=== PATIENT | female | born 1960 | race Caucasian/White ===

== ENCOUNTER 2019-03-23 08:26 | Day surgery (SDC) | payer OTHER ==
--- NOTE | 2019-03-23 08:05 | HP ---
DATE OF SURGERY: 03/23/2019 HISTORY OF PRESENT ILLNESS: The patient is a 58 year-old with history of polyps. No bloody stools. Last colonoscopy was in 2011. Family history negative for colon cancer or stomach cancer. Some epigastric pain, some bloating. She feels full usually. Given her epigastric pain, bloating and history of polyps she is in need of EGD and colonoscopy. PAST MEDICAL HISTORY: Diabetes. PAST SURGICAL HISTORY: Cyst under her breast taken off in the past. section. Eye surgery. Cholecystectomy. Appendectomy. Elbow surgery. Foot surgery. MEDICATIONS: Amaryl, Lipitor, Zantac. ALLERGIES: ASPIRIN, CIPRO, PREVACID. FAMILY HISTORY: Negative in regards to this problem. SOCIAL HISTORY: One pack per day smoker, denies alcohol abuse. REVIEW OF SYSTEMS: Twelve systems reviewed, negative or noncontributory as above and per preadmission questionnaire. PHYSICAL EXAMINATION: GENERAL: No acute distress. HEENT: Sclerae nonicteric. NECK: No JVD. CHEST: Equal excursion, nonlabored breathing. CVS: Regular rate and rhythm. ABDOMEN: Soft. No peritoneal signs. EXTREMITIES: No significant edema. NEURO: Alert, oriented, moving extremities symmetrically. No gross motor deficits noted. RECTAL: Deferred timed to endoscopy exam. IMPRESSION: History of some epigastric pain, bloating, history of polyps, in need of EGD and colonoscopy. She is shown the risk sheet and explained the procedure in detail but not limited to bleeding or infection, risk of bowel injury or perforation possibly requiring open procedure, risk of missed or nondiagnosis or incomplete exam possibly requiring barium enema, other studies or procedures, general risk of anesthesia or sedation, risk of bowel prep or sedation, postoperative risk of nausea or cramping as well as possibility of inability to diagnose the etiology of her symptoms. She may need further work up and/or testing or even referral to other specialist. She understands and agrees to the planned procedure and will proceed with EGD and colonoscopy as an outpatient.
[~2019-03-23 08:26] MED LIST: Lactated Ringers 1,000 ML IV ONE; Lactated Ringers 1,000 ML IV SCH
[2019-03-23] MEDS ORDERED: Ketamine HCl 50 MG/ML IV ONE (08:27)
[2019-03-23] MEDS ORDERED: DIPRIVAN 200 MG/20 ML IV ONE (08:27)
[2019-03-23 11:47] VITALS: O2SAT 98
[2019-03-23 11:51] VITALS: BP 144/94; PULSE 75
--- NOTE | 2019-03-24 08:10 | OP ---
SURGERY DATE/TIME: 03/23/2019 1008 PREOPERATIVE DIAGNOSES: 1) Epigastric pain, bloating. 2) Need for screening colonoscopy. POSTOPERATIVE DIAGNOSES: 1) Mild gastritis. 2) Small internal and external hemorrhoids. 3) Small raised lesion versus hyperplastic lesion in the rectum. PROCEDURES: 1) EGD with cold biopsy of small bowel to evaluate for celiac sprue. 2) Cold biopsy of the antrum to evaluate for Helicobacter pylori. 3) Cold biopsy distal esophagus to evaluate for eosinophilic esophagitis. 4) Colonoscopy to terminal ileum. 5) Retrograde ileoscopy. 6) Random cold biopsy of the ileum to evaluate for microscopic ileitis. 7) Random cold biopsy of the colon to evaluate for microscopic colitis. 8) Hot biopsy small raised lesion versus hyperplastic lesion rectum x2. SURGEON: Dr. Sean Rodríguez. ANESTHESIA: MAC. ESTIMATED BLOOD LOSS: Minimal. INDICATIONS: As noted above. Risks and benefits explained in detail and not limited to and consent obtained. DESCRIPTION OF PROCEDURE AND FINDINGS: The patient is taken to the operating room. MAC anesthesia introduced. After official time out and no disagreement with planned procedure, a bite block positioned. Video gastroscope easily passed down the esophagus through the gastroesophageal junction about 38 cm through the patent pylorus to the junction of the second and third portion of the duodenum. Duodenum and duodenal bulb grossly unremarkable. Given her symptoms of pain and bloating unclear etiology. There are no large ulcers noted in the stomach. It was felt that she warranted testing for celiac sprue. Cold biopsy taken. Biopsy of the small bowel to evaluate for celiac sprue. Good hemostasis noted. The scope pulled back into the stomach and had some mild gastritis, petechial hemorrhages. Cold biopsy taken to evaluate for Helicobacter pylori. Good hemostasis noted. There were no signs of any large ulcers, masses, any obstructing lesions or any other mucosal lesion. No polyps, masses, ulcers or any other mucosal lesion. On retroflex the gastroesophageal junction snug against the scope. No signs of any significant hiatal hernia. Scope straightened. Gastroesophageal junction noted about 38 cm. Z-line was fairly crisp. No signs of any Mcelroy's or erosive esophagitis. Given her symptom complaints however some random cold biopsies taken of distal esophagus to evaluate for eosinophilic esophagitis. Good hemostasis noted. Otherwise the remainder of the esophagus was grossly unremarkable. No signs of any obvious masses or any other mucosal lesions. The scope is withdrawn. The patient tolerated the procedure well. Attention is then turned to the colonoscopy. Digital rectal exam did not reveal any rectal masses. She did have some small internal and external hemorrhoids. Video colonoscope inserted and passed up the tortuous sigmoid, descending, transverse and ascending colon. With external pressure the scope was able to be passed around the cecum. Appendiceal orifice and valve well visualized. Scope passed up the terminal ileum. Retrograde ileoscopy was performed which was grossly unremarkable. There were no signs of any chronic inflammation. No signs of any cobblestoning. It looked fairly unremarkable. But given her symptom complaints cold biopsy taken in the ileum to evaluate for microscopic ileitis. The scope was then pulled back. Random cold biopsies were taken throughout the colon. There were no macroscopic colitis. Random cold biopsies taken to evaluate for microscopic colitis given her symptom complaints of pain and bloating. The scope slowly and carefully withdrawn over around to the rectum. Prep overall was fair, a little bit of liquidy semi-solid stool suction irrigated as clear as possible slightly limiting the exam for very tiny lesions but overall fair prep. Scope pulled back in the rectum. A couple small 2 mm raised lesions versus early polyps or hyperplastic lesions. These were removed with hot biopsy forceps with brief bursts of cautery. Good hemostasis was noted. Otherwise she had some small internal and external hemorrhoids. The scope is carefully withdrawn. There is no sign of any large polyps, masses or obstructing lesions. Findings discussed with the family out in the waiting area. We will see her back in the office in a week or two.
== END 2019-03-23 11:45 | disposition home or self-care (01) ==
LOC: SDC 08:26
PROVIDERS: ATTEND Surgery
DX: Z12.11 Encounter for screening for malignant neoplasm of colon (principal); R10.13 Epigastric pain; K62.1 Rectal polyp; K29.70 Gastritis, unspecified, without bleeding; K64.4 Residual hemorrhoidal skin tags; K64.8 Other hemorrhoids
CPT/HCPCS: 88305; 88312; J2704

== ENCOUNTER 2019-06-15 10:38 | Day surgery (SDC) | payer OTHER ==
--- NOTE | 2019-06-15 08:24 | HP ---
DATE OF SURGERY: 06/15/2019 HISTORY OF PRESENT ILLNESS: The patient is a 59 year-old the past four months increasing size lesion on her nose. She had some other pigmented lesions that she did not want excised at the same time. PAST MEDICAL HISTORY: Diabetes. Kidney stones in the past. Hypercholesterolemia. PAST SURGICAL HISTORY: Lithotripsy x7 in the past. Eye surgery x3. section x2. Appendectomy. Cholecystectomy in the past. MEDICATIONS: Dicyclomine, garlic, Amaryl, Lipitor, Metformin. ALLERGIES: ASPIRIN, CIPRO, PREVACID. FAMILY HISTORY: Diabetes. SOCIAL HISTORY: One box packer per day smoker. Denies alcohol abuse. REVIEW OF SYSTEMS: Fourteen systems reviewed. No chest pain or palpitations other systems negative or noncontributory as above and per preadmission questionnaire. PHYSICAL EXAMINATION: GENERAL: No acute distress. HEENT: Sclerae nonicteric. NECK: No JVD. CHEST: Equal excursion, nonlabored breathing. CVS: Regular rate and rhythm. ABDOMEN: Soft. EXTREMITIES: No significant edema. NEURO: Alert, oriented, moving extremities symmetrically. No gross motor deficits noted. HEENT: On the face she has a nonhealing lesion on her nose enlarging in size thickening. IMPRESSION: Nonhealing, enlarging lesion changes in pigmented lesion on her nose in need of excision, possible flap or possible skin graft. Risks and benefits explained in detail including but not limited to bleeding or infection, risk of wound dehiscence possible healing by secondary intent or other procedures, risk of involved margins, possibly requiring other procedures, general risk of anesthesia, deep venous thrombosis, pulmonary embolism or pneumonia. The fact that she would have a scar in the area. She could have a little contour change of her nose. She understands and agrees to the planned procedure. We will proceed with excisional biopsy of pigmented nonhealing nose lesion possible flap, possible skin graft pending on operative findings. She understands and agrees to the planned procedure.
[~2019-06-15 10:38] MED LIST changes: +DIPRIVAN 200 MG/20 ML IV ONE; +Ketamine HCl 50 MG/ML ONE; -Lactated Ringers 1,000 ML IV SCH; +Quelicin Fliptop 200 MG/10 ML ONE; +SUBLIMAZE 100 MCG/2 ML ONE; +Sensorcaine 0.25% 10 ML ONE; +Zemuron 100 MG/10 ML ONE
[2019-06-15] MEDS ORDERED: Lactated Ringers 1,000 ML IV ONE (10:50)
[2019-06-15] MEDS ORDERED: CEFAZOLIN 2 GM-D5W BAG** 2 GM/50 ML ML IV ONE (10:51)
[2019-06-15] MEDS ORDERED: CEFAZOLIN 2 GM-D5W BAG** 2 GM/50 ML ML IV SCH (11:00)
[2019-06-15] MEDS ORDERED: Lactated Ringers 1,000 ML IV SCH (11:00)
[2019-06-15] MEDS ORDERED: MINERAL OIL LIGHT 10 ML FOR SURGERY ONE (13:21)
[2019-06-15] MEDS ORDERED: TORAdol 30 mg Injection ONE (13:46)
[2019-06-15] MEDS ORDERED: Zofran 4 MG/2 ML VIAL ONE (13:46)
[2019-06-15] MEDS ORDERED: Decadron 4 MG INJ ONE (13:46)
[2019-06-15 15:28] VITALS: BP 160/88; PULSE 63; O2SAT 97
--- NOTE | 2019-06-15 15:41 | OP ---
SURGERY DATE/TIME: 06/15/2019 1306 PREOPERATIVE DIAGNOSIS: Nonhealing, recurrent bleeding nasal lesion. POSTOPERATIVE DIAGNOSIS: Nonhealing, recurrent bleeding nasal lesion. PROCEDURE: Excisional biopsy of nonhealing nasal lesion with 1 cm split thickness skin graft coverage approximately 1 cm/sq. SURGEON: Dr. Sean Rodríguez. ANESTHESIA: General. ESTIMATED BLOOD LOSS: Minimal. INDICATIONS: As noted above. Risks and benefits explained in detail and not limited to and consent obtained. DESCRIPTION OF PROCEDURE AND FINDINGS: The patient is taken to the operating room. Site had been confirmed and marked with the patient in the preoperative holding area. General anesthesia introduced. Nose, neck and ear prepped and draped in usual sterile fashion. After official time out and no disagreement with planned procedure, going out to normal appearing skin on either side of this nonhealing lesion dissection carried down underneath down towards the cartilage. This required going just inside the nose a bit with about 1 cm specimen. Given the location short of altering the cartridge and shape of this nostril/nose as well as it is felt a flap would create some other issues more laterally, it is felt the best option at this juncture was a skin graft to cover this area. It is felt behind the ear, upper part of the neck resection carried in spindle-shaped fashion with the skin defatted as it was excised. The spindle-shaped fragment of skin was excised. It had been cut to appropriate dimensions. Slits were cut to allow for any fluid to drain. It was then secured circumferentially around with 6-0 PDS turning the graft as necessary. This covered the area. Some mineral oil, Adaptic and a bulky dressing with some rolled gauze as they do not have Kittner peanut type to use. A 2 x 2 was cut and rolled as a compression dressing secured with 4-0 Prolene. 0.25% Marcaine local was then injected at the base of the nose and along the graft donor site upper neck posterior to the ear. This donor site had been closed in running 5-0 Prolene. Sterile dressing applied. Patient tolerated the procedure well. There were no immediate complications. Findings discussed with the family out in the waiting area. Leave the compression dressing in place for the next week and change the outer dressing if needed and change the neck dressing as needed starting in a day or two. Otherwise will follow up and see her in the office next week.
== END 2019-06-15 15:39 | disposition home or self-care (01) ==
LOC: SDC 10:38
PROVIDERS: ATTEND Surgery
DX: C44.311 Basal cell carcinoma of skin of nose (principal); E11.9 Type 2 diabetes mellitus without complications; E78.00 Pure hypercholesterolemia, unspecified; Z79.899 Other long term (current) drug therapy
CPT/HCPCS: 82962; J0330; J0690; J1100; J1885; J2405; J2704; J3010; A9270-GY

== ENCOUNTER 2020-10-31 17:06 | Emergency (ER) | payer MEDICAID ==
[2020-10-31 17:28] VITALS: O2SAT 97
[2020-10-31] MEDS ORDERED: MORPHINE SULFATE 2 MG INJ IV ONE (17:39)
[2020-10-31] MEDS ORDERED: Sodium Chloride 0.9% 1000 ML 1,000 ML IV SCH (17:45)
[2020-10-31 18:03] LABS: Hematocrit 43.1 % (35-47); Hemoglobin 14.3 gm/dl (12.0-16.0); Mean Cell Volume 95.6 fl (78-100); Mean Corpuscular Hemoglobin 31.7 pg (26-32); Mean Corpuscular Hgb Concent. 33.2 g/dl (32-36); Mean Platelet Volume 9.3 fl (7.5-11.0); Platelet Count 268 K/mm3 (150-450); Red Blood Count 4.51 M/mm3 (4.1-5.4); Red Cell Distribution Width 13.5 % (11.5-14.0); White Blood Count 12.1 K/mm3 (4.0-10.5)
[2020-10-31 18:21] LABS: ALBUMIN 4.3 g/dL (3.5-5.0); ALKALINE PHOSPHATASE 87 U/L (38-126); ANION GAP 14.2 MEQ/L (5-15); BLOOD UREA NITROGEN 15 mg/dL (7-17); CHLORIDE 103 mmol/L (98-107); Calcium 10.1 mg/dL (8.4-10.2); Carbon Dioxide 25 mmol/L (22-30); Creatinine 1 0.72 mg/dL (0.52-1.04); EST GLOMERULAR FILTRATION RATE > 60.0 ML/MIN; Glucose 185 mg/dL (74-106); LIPASE 101 U/L (23-300); Potassium 4.2 mmol/L (3.5-5.1); SGOT/AST 54 U/L (14-36); SGPT/ALT 34 U/L (0-35); SODIUM 138 mmol/L (137-145); Total Protein 7.9 g/dL (6.3-8.2)
[2020-10-31 18:32] LABS: Appearance SLIGHTLY CLOUDY (CLEAR); Bilirubin NEGATIVE (NEGATIVE); Blood MODERATE Ery/ul (0-5); Glucose NEGATIVE (NEGATIVE); Ketones NEGATIVE (NEGATIVE); Leukocyte Esterase MODERATE (NEGATIVE); Mucus SLIGHT /HPF (NEGATIVE); Nitrite POSITIVE (NEGATIVE); Protein,Urine Dip 100 (Negative); RBC 26-50 /HPF (0-2); Urobilinogen 2 mg/dL (0-1); WBC >100 /HPF (0-5)
[2020-10-31] MEDS ORDERED: MORPHINE SULFATE 2 MG INJ ONE (18:41)
[2020-10-31] MEDS ORDERED: Sodium Chloride 0.9% 1000 ML 1,000 ML ONE (18:41)
[2020-10-31] MEDS ORDERED: ROCEPHIN 1 Gm-D5w 50 ml Bag** 1 G/50 ML IVPB IV STA (18:43)
[2020-10-31] MEDS ORDERED: ROCEPHIN 1 Gm-D5w 50 ml Bag** 1 G/50 ML IVPB IV ONE (18:46)
--- NOTE | 2020-10-31 19:50 | ERPHSYRPT ---
- History of Present Illness Time Seen by Provider: 10/31/20 17:30 Source: patient Exam Limitations: no limitations Patient Subjective Stated Complaint: pt here for pain to right flank area since 1600 today with nausea and vomiting, she has hx of kidney stones Triage Nursing Assessment: pt alert, walked in holding back, resp easy, skin w/d/p. has face mask in place, no edeman Physician History: Patient is a 60-year-old female presents to our ED with complaints of right flank pain. Right flank pain started approximately 4 PM today. Patient advises that she has a history of multiple recurrent kidney stones requiring lithotripsy. Patient's pain today is similar to her kidney stone pain. Pain described as an ache that is localized to the right flank. No specific worsening improving factors. Patient admits to associated nausea and vomiting. No fever. No trauma. No diaphoresis. Symptoms are mild to moderate in intensity. Patient voices no other complaints at concerns at this time. Timing/Duration: today Severity: moderate Modifying Factors: Improves With: nothing Associated Symptoms: nausea, vomiting Allergies/Adverse Reactions: ciprofloxacin [From Cipro] Allergy (Intermediate, Verified 10/31/20 17:28) Hives aspirin Adverse Reaction (Severe, Verified 10/31/20 17:28) hx of bleeding ulcers lansoprazole [From Prevacid] Adverse Reaction (Intermediate, Verified 10/31/20 17:28) ringing in ears and dizziness Home Medications: Atorvastatin Calcium [Lipitor 20MG Tablet] 80 mg PO DAILY 03/12/19 [History] Metformin HCl [Glucophage] 1,000 mg PO DAILY 06/10/19 [History] Clopidogrel Bisulfate [Clopidogrel] 1 ea DAILY 10/31/20 [History] Furosemide 20 mg [Lasix 20 mg] 1 ea DAILY 10/31/20 [History] Isosorbide Mononitrate 30 mg [Imdur 30 MG] 1 ea DAILY 10/31/20 [History] Loratadine 1 ea DAILY 10/31/20 [History] Metoprolol Succinate 1 ea DAILY 10/31/20 [History] Omeprazole 1 ea DAILY 10/31/20 [History] Potassium Chloride 10 Meq Tab* [Klor Con 10 MEQ] 1 ea BID 10/31/20 [History] lisinopriL [Zestril] 1 ea DAILY 10/31/20 [History] Hx Tetanus, Diphtheria Vaccination/Date Given: No Hx Influenza Vaccination/Date Given: Yes Hx Pneumococcal Vaccination/Date Given: Yes Immunizations Up to Date: Yes Travel Risk - International Travel Have you traveled outside of the country in past 3 weeks: No - Coronavirus Screening Are you exhibiting any of the following symptoms?: No Close contact with a COVID-19 positive Pt in past 14-21 Days: No - Review of Systems Constitutional: No Symptoms, No Fever, No Chills Eyes: No Symptoms Ears, Nose, & Throat: No Symptoms Respiratory: No Symptoms, No Cough, No Dyspnea Cardiac: No Symptoms, No Chest Pain, No Edema, No Syncope Abdominal/Gastrointestinal: No Symptoms, No Abdominal Pain, No Nausea, No Vomiting, No Diarrhea Genitourinary Symptoms: No Symptoms, No Dysuria Musculoskeletal: No Symptoms, No Back Pain, No Neck Pain Skin: No Symptoms, No Rash Neurological: No Symptoms, No Dizziness, No Focal Weakness, No Sensory Changes Psychological: No Symptoms Endocrine: No Symptoms Hematologic/Lymphatic: No Symptoms Immunological/Allergic: No Symptoms All Other Systems: Reviewed and Negative - Past Medical History Pertinent Past Medical History: Yes Neurological History: TIA ENT History: No Pertinent History Cardiac History: No Pertinent History Respiratory History: No Pertinent History, Other Endocrine Medical History: Diabetes Type II Musculoskeletal History: No Pertinent History GI Medical History: GERD History: No Pertinent History Psycho-Social History: No Pertinent History Female Reproductive Disorders: No Pertinent History Other Medical History: Current everyday smoker - Past Surgical History Past Surgical History: Yes Neuro Surgical History: No Pertinent History Cardiac: No Pertinent History Respiratory: No Pertinent History Gastrointestinal: Appendectomy, Cholecystectomy, Other Genitourinary: No Pertinent History Musculoskeletal: Other Female Surgical History: Section, Other Other Surgical History: 7 lithotripies, 1 with retrievals, L ovary, cyst on L breast removed. ulnar entrapment surgeries, warts removed from both feet. - Social History Smoking Status: Former smoker How long have you smoked: 30 years Exposure to second hand smoke: No Drug Use: none Patient Lives Alone: No - Female History Hx Last Menstrual Period: post Hx Now: No - Nursing Vital Signs Nursing Vital Signs: Initial Vital Signs Temperature 97.7 F 10/31/20 17:22 Pulse Rate 93 H 10/31/20 17:22 Respiratory Rate 18 12/07/20 17:22 Blood Pressure 159/84 12/07/20 17:22 O2 Sat by Pulse Oximetry 97 10/31/20 17:22 Pain Scale Pain Intensity 8 - Physical Exam General Appearance: no apparent distress, alert Eye Exam: PERRL/EOMI, eyes nml inspection Ears, Nose, Throat Exam: normal ENT inspection, TMs normal, pharynx normal, moist mucous membranes Neck Exam: normal inspection, non-tender, supple, full range of motion Respiratory Exam: normal breath sounds, lungs clear, No respiratory distress Cardiovascular Exam: regular rate/rhythm, normal heart sounds, normal peripheral pulses Gastrointestinal/Abdomen Exam: soft, normal bowel sounds, other (Rt CVA tenderness to palpation. Soft tissue intact. No signs of trauma.), No tenderness, No mass Back Exam: normal inspection, normal range of motion, No CVA tenderness, No vertebral tenderness Extremity Exam: normal inspection, normal range of motion, pelvis stable Neurologic Exam: alert, oriented x 3, cooperative, normal mood/affect, nml cerebellar function, nml station & gait, sensation nml, No motor deficits Skin Exam: normal color, warm, dry, No rash Lymphatic Exam: No adenopathy SpO2 Interpretation: normal SpO2: 97 O2 Delivery: Room Air - Course Nursing assessment & vital signs reviewed: Yes - CT Exams Abdomen/Pelvis CT Interpretation: Tele-radiologist Report (T reveals a 6 to 7 mm distal right ureter calculus approximately 4 to 5 cm from the UVJ. Proximal right ureter dilated up to 7 mm and mild hydronephrosis. This is consistent with obstructive uropathy. Nonobstructing left renal punctate calculus.) Ordered Tests: Active Orders 24 hr Category Date Time Status IV Insertion STAT Care 10/31/20 17:37 Active ABDOMEN AND PELVIS W/0 CONTRAS [CT] Stat Exams 10/31/20 17:38 Taken CBC W DIFF Stat Lab 10/31/20 17:40 Completed CMP Stat Lab 10/31/20 17:40 Completed CULTURE,URINE Stat Lab 10/31/20 17:37 Received LIPASE Stat Lab 10/31/20 17:40 Completed Manual Differential NC Stat Lab 10/31/20 17:40 Completed UA W/RFX UR CULTURE Stat Lab 10/31/20 17:37 Completed Medication Summary Generic Name Dose Route Start Last Admin Trade Name Freq PRN Reason Stop Dose Admin Sodium Chloride 1,000 mls @ 100 mls/hr 10/31/20 17:45 10/31/20 18:49 Sodium Chloride 0.9% 1000 Ml IV 11/30/20 17:44 100 mls/hr .Q10H CHRISTA Administration Discontinued Medications Generic Name Dose Route Start Last Admin Trade Name Abdirahman PRN Reason Stop Dose Admin Ceftriaxone Sodium/Dextrose 1 g in 50 mls @ 100 mls/hr 10/31/20 18:43 10/31/20 18:50 Rocephin 1 Gm-D5w 50 Ml Bag IV 10/31/20 19:12 100 mls/hr STAT STA 100 mls/hr Administration Ceftriaxone Sodium/Dextrose Confirm 10/31/20 18:46 Rocephin 1 Gm-D5w 50 Ml Bag Administered 10/31/20 18:47 Dose 1 g in 50 mls @ ud IV .STK-MED ONE Morphine Sulfate 2 mg 10/31/20 17:39 10/31/20 18:51 Morphine Sulfate 2 Mg Inj IV 10/31/20 17:40 2 mg STAT ONE Administration Morphine Sulfate Confirm 10/31/20 18:41 Morphine Sulfate 2 Mg Inj Administered 10/31/20 18:42 Dose 2 mg .ROUTE .STK-MED ONE Lab/Rad Data: Laboratory Result Diagrams 10/31/20 17:40 10/31/20 17:40 Laboratory Results 10/31/20 10/31/20 10/31/20 Range/Units 17:40 17:40 17:37 WBC 12.1 H (4.0-10.5) K/mm3 RBC 4.51 (4.1-5.4) M/mm3 Hgb 14.3 (12.0-16.0) gm/dl Hct 43.1 (35-47) % MCV 95.6 (78-100) fl MCH 31.7 (26-32) pg MCHC 33.2 (32-36) g/dl RDW 13.5 (11.5-14.0) % Plt Count 268 (150-450) K/mm3 MPV 9.3 (7.5-11.0) fl Sodium 138 (137-145) mmol/L Potassium 4.2 (3.5-5.1) mmol/L Chloride 103 (98-107) mmol/L Carbon Dioxide 25 (22-30) mmol/L Anion Gap 14.2 (5-15) MEQ/L BUN 15 (7-17) mg/dL Creatinine 0.72 (0.52-1.04) mg/dL Estimated GFR > 60.0 ML/MIN Glucose 185 H (74-106) mg/dL Calcium 10.1 (8.4-10.2) mg/dL Total Bilirubin 0.60 (0.2-1.3) mg/dL AST 54 H (14-36) U/L ALT 34 (0-35) U/L Alkaline Phosphatase 87 (38-126) U/L Serum Total Protein 7.9 (6.3-8.2) g/dL Albumin 4.3 (3.5-5.0) g/dL Lipase 101 (23-300) U/L Urine Color BEA (YELLOW) Urine Appearance SLIGHTLY CLOUDY (CLEAR) Urine pH 5.0 (5-6) Ur Specific [place] 1.020 (1.005-1.025) Urine Protein 100 (Negative) Urine Ketones NEGATIVE (NEGATIVE) Urine Blood MODERATE (0-5) Primitivo/ul Urine Nitrite POSITIVE (NEGATIVE) Urine Bilirubin NEGATIVE (NEGATIVE) Urine Urobilinogen 2 (0-1) mg/dL Ur Leukocyte Esterase MODERATE (NEGATIVE) Urine WBC (Auto) >100 (0-5) /HPF Urine RBC (Auto) 26-50 (0-2) /HPF U Epithel Cells (Auto) NONE (FEW) /HPF Urine Bacteria (Auto) NONE (NEGATIVE) /HPF Urine Mucus (Auto) SLIGHT (NEGATIVE) /HPF Urine Culture Reflexed YES (NO) Urine Glucose NEGATIVE (NEGATIVE) mg/dL - Progress Progress: improved Progress Note: 10/31/20 19:49 Patient reassessed. Pain improved. CT reveals a ureterolithiasis. Additionally patient has a urinary tract infection. Rocephin administered. Patient is not displaying any signs of sepsis at this time. We do not have urology available at this time. We will transfer patient to [facility] for further evaluation and treatment. Case discussed with ER physician Dr. Art who accepts transfer. Plan of care discussed with patient. She agrees t o transfer to [facility] for further evaluation and treatment. Counseled pt/family regarding: lab results, diagnosis, rad results - Departure Departure Disposition: Transfer Clinical Impression: Ureterolithiasis, Hydronephrosis, Urinary tract infection, Renal colic Condition: Stable Critical Care Time: No Referrals: BRUCE ALBARRAN [Primary Care Provider] -
[2020-10-31 19:56] VITALS: BP 154/77; PULSE 62
[2020-10-31 22:57] LABS: Eosinophil 3 % (0.00-3.0); Lymphocytes 21 % (24-44); Monocyte 11 % (0.0-12.0); Neutrophils 65 % (36.0-66.0); Total Cells Counted 100
[2020-10-31 22:58] LABS: Platelet Estimate NORMAL (NORMAL)
--- NOTE | 2020-11-01 08:47 | XRAY ---
Indication: Right flank pain. Nausea and vomiting. Multiple contiguous axial images obtained through the abdomen and pelvis without contrast using renal stone protocol. Comparison: None Lung bases demonstrates small right lower lobe calcified granuloma. No infiltrate or effusion. Heart is not enlarged with partially visualized pacer leads. Distal right ureter demonstrates 6-7 mm calculus approximately 4-5 cm proximal to the UVJ. Proximal right ureter is prominent up to 7 mm and there is mild hydronephrosis consistent with obstructive uropathy. No perinephric fluid/stranding. Left kidney demonstrates nonobstructing punctate calculus. Stomach is distended with food. Noncontrasted stomach and bowel loops appear nonobstructed. Previous appendectomy, cholecystectomy, and bilateral tubal ligation. No free fluid/air. Remaining liver, pancreas, spleen, adrenal glands, kidneys, ureters, bladder, and uterus appear unremarkable for noncontrast exam. Moderate scattered aortoiliac calcifications without AAA. Osseous structures intact with mild degenerative changes throughout the thoracolumbar spine. Impression: 1. 6-7 mm distal right ureteral calculus producing partial obstruction as detailed. Additional nonobstructing left renal micro-calculus. 2. Incidental right lower lobe calcified granuloma, scattered arteriosclerotic disease, and chronic bony findings. 3. Remaining CT abdomen/pelvis without contrast exam is negative.
== END 2020-10-31 20:10 | disposition short-term general hospital (02) ==
LOC: ED 17:06
DX: N13.2 Hydronephrosis with renal and ureteral calculous obstruction (principal); N39.0 Urinary tract infection, site not specified; N23 Unspecified renal colic
CPT/HCPCS: 36000; 36415; 74176; 80053; 81001; 83690; 85025; 87077; 87086; 87186; 96360; 96365; 96374; 99285; J0696; J2270

== ENCOUNTER 2022-11-29 16:39 | Emergency (ER) | payer MEDICAID, OTHER ==
[2022-11-29] MEDS ORDERED: Zofran 4 MG/2 ML VIAL IV ONE (17:14)
[2022-11-29] MEDS ORDERED: MORPHINE SULFATE 4 MG INJ IV ONE (17:14)
[2022-11-29] MEDS ORDERED: Sodium Chloride 0.9% 500 ML 500 ML IV ONE ×2 (17:15→18:53)
--- NOTE | 2022-11-29 17:21 | ERPHSYRPT ---
- History of Present Illness Time Seen by Provider: 11/29/22 17:05 Historian: patient Exam Limitations: no limitations Patient Subjective Stated Complaint: Pt has hx of diverticulitis and approx 30 minutes ago she began having pain in her LUQ w/nausea Triage Nursing Assessment: Pt brought to the ER by her , alyson crisostomo, rates pain as 8/10, pain with palpatation to the LUQ, nausea, denies vomiting, last intake approx 30 minutes ago, last bowel movement yesterday, doesn't appear to be in any distress Physician History: 62 years old female with multiple medical problems including CAD, A. fib on Coumadin, AICD implant, hypertension, hyperlipidemia, diverticulitis, diabetes mellitus presented in the ER with 2 hours history of moderate to severe sharp pain left upper quadrant with associated nausea and dry heaving. Denies diarrhea or constipation. No significant aggravating or relieving factors. Reports having similar symptoms in the past with diverticulitis. Timing/Duration: hour(s) (2), constant, sudden, worse Activities at Onset: rest Quality: sharpness Abdominal Pain Onset Location: LUQ, flank Pain Radiation: no radiation Severity of Pain-Max: severe Severity of Pain-Current: severe Modifying Factors: Improves With: nothing Associated Symptoms: nausea Previous symptoms: same symptoms as today Allergies/Adverse Reactions: ciprofloxacin [From Cipro] Allergy (Intermediate, Verified 11/29/22 17:04) Hives aspirin Adverse Reaction (Severe, Verified 11/29/22 17:04) hx of bleeding ulcers lansoprazole [From Prevacid] Adverse Reaction (Intermediate, Verified 11/29/22 17:04) ringing in ears and dizziness Home Medications: Atorvastatin Calcium [Lipitor 20MG Tablet] 80 mg PO DAILY 03/12/19 [History] Metformin HCl [Glucophage] 500 mg PO DAILY 06/10/19 [History] Furosemide 20 mg [Lasix 20 mg] 20 mg PO BID 10/31/20 [History] Isosorbide Mononitrate 30 mg [Imdur 30 MG] 30 mg PO DAILY 10/31/20 [History] Loratadine 1 ea PO DAILY 10/31/20 [History] Metoprolol Succinate 50 mg PO DAILY 10/31/20 [History] Potassium Chloride Tab* [Klor Con] 10 meq PO BID 10/31/20 [History] Aspirin EC 81 mg [Ecotrin 81 mg] 81 mg PO DAILY 11/29/22 [History] Glimepiride 4 mg [Amaryl 4 mg] 4 mg PO DAILY 11/29/22 [History] Hydrocodone/Acetaminophen [Hydrocodone-Acetamin 7.5-325] 1 each PO UD 11/29/22 [History] Ipratropium [place] 0.5 mg [Atrovent 0.5MG NEBULE] 0 mg IH TID 11/29/22 [History] Montelukast Sodium 10 mg [Singulair 10 MG] 10 mg PO DAILY 11/29/22 [History] Sacubitril/Valsartan [Entresto 24 mg-26 mg Tablet] 1 tab PO BID 11/29/22 [History] Warfarin Sodium 7.5 mg PO DAILY 11/29/22 [History] Hx Tetanus, Diphtheria Vaccination/Date Given: No Hx Influenza Vaccination/Date Given: Yes Hx Pneumococcal Vaccination/Date Given: Yes Travel Risk - International Travel Have you traveled outside of the country in past 3 weeks: No - Coronavirus Screening Are you exhibiting any of the following symptoms?: No Close contact with a COVID-19 positive Pt in past 14-21 Days: No - Vaccine Status Have you recieved a Covid-19 vaccination: Yes [employer]: [employer] - Vaccination Dates Date of 2cond Vaccination (if applicable): 2020 - Review of Systems Constitutional: No Symptoms Eyes: Other (Ptosis on the right) Ears, Nose, & Throat: No Symptoms Respiratory: No Symptoms Cardiac: No Symptoms Abdominal/Gastrointestinal: Abdominal Pain, Nausea Genitourinary Symptoms: No Symptoms Musculoskeletal: No Symptoms Skin: No Symptoms Neurological: No Symptoms Hematologic/Lymphatic: No Symptoms Immunological/Allergic: No Symptoms - Past Medical History Pertinent Past Medical History: Yes Neurological History: TIA ENT History: No Pertinent History Cardiac History: No Pertinent History Respiratory History: No Pertinent History, Other Endocrine Medical History: Diabetes Type II Musculoskeletal History: No Pertinent History GI Medical History: GERD History: No Pertinent History Psycho-Social History: No Pertinent History Female Reproductive Disorders: No Pertinent History Other Medical History: Current everyday smoker - Past Surgical History Past Surgical History: Yes Neuro Surgical History: No Pertinent History Cardiac: No Pertinent History Respiratory: No Pertinent History Gastrointestinal: Appendectomy, Cholecystectomy, Other Genitourinary: No Pertinent History Musculoskeletal: Other Female Surgical History: Section, Other Other Surgical History: 7 lithotripies, 1 with retrievals, L ovary, cyst on L breast removed. ulnar entrapment surgeries, warts removed from both feet. - Social History Smoking Status: Former smoker How long have you smoked: 30 years Exposure to second hand smoke: No Drug Use: none Patient Lives Alone: No - Nursing Vital Signs Nursing Vital Signs: Initial Vital Signs Temperature 96.8 F 11/29/22 16:50 Pulse Rate 81 11/29/22 16:50 Blood Pressure 121/73 11/29/22 16:50 O2 Sat by Pulse Oximetry 97 11/29/22 16:50 Pain Scale Pain Intensity 5 - Physical Exam General Appearance: no apparent distress, alert Eye Exam: PERRL/EOMI, eyes nml inspection Ears, Nose, Throat Exam: normal ENT inspection, pharynx normal Neck Exam: normal inspection, non-tender, supple, full range of motion Respiratory Exam: normal breath sounds, lungs clear Cardiovascular Exam: regular rate/rhythm, normal heart sounds Gastrointestinal/Abdomen Exam: soft, normal bowel sounds, tenderness (Left upper quadrant/flank) Back Exam: normal inspection, normal range of motion Extremity Exam: normal inspection, normal range of motion Neurologic Exam: alert, oriented x 3, cooperative Skin Exam: normal color SpO2 Interpretation: normal SpO2: 97 O2 Delivery: Room Air Ordered Tests: Active Orders 24 hr Category Date Time Status IV Insertion STAT Care 11/29/22 17:14 Active NPO (ED) STAT Care 11/29/22 17:14 Active ABDOMEN AND PELVIS W/0 CONTRAS [CT] Stat Exams 11/29/22 17:15 Taken CBC W DIFF Stat Lab 11/29/22 18:15 Completed CMP Stat Lab 11/29/22 18:15 Completed LIPASE Stat Lab 11/29/22 18:15 Completed TROPONIN Q4H Lab 11/29/22 18:15 Completed TROPONIN Q4H Lab 11/29/22 21:15 Ordered TROPONIN Q4H Lab 11/30/22 01:15 Ordered UA W/RFX UR CULTURE Stat Lab 11/29/22 19:29 Ordered Medication Summary Discontinued Medications Generic Name Dose Route Start Last Admin Trade Name Freq PRN Reason Stop Dose Admin Sodium Chloride 500 mls @ 500 mls/hr 11/29/22 17:15 11/29/22 19:01 Sodium Chloride 0.9% 500 Ml IV 11/29/22 18:14 500 mls/hr .Q1H ONE Administration Sodium Chloride Confirm 11/29/22 18:53 Sodium Chloride 0.9% 500 Ml Administered 11/29/22 18:54 Dose 500 mls @ ud IV .STK-MED ONE Morphine Sulfate 4 mg 11/29/22 17:14 11/29/22 19:01 Morphine Sulfate 4 Mg/Ml Injection IV 11/29/22 17:15 4 mg STAT ONE Administration Morphine Sulfate Confirm 11/29/22 18:53 Morphine Sulfate 4 Mg/Ml Injection Administered 11/29/22 18:54 Dose 4 mg .ROUTE .STK-MED ONE Ondansetron HCl 4 mg 11/29/22 17:14 11/29/22 19:02 Ondansetron Hcl 4 Mg/2 Ml Vial IV 11/29/22 17:15 4 mg STAT ONE Administration Ondansetron HCl Confirm 11/29/22 18:53 Ondansetron Hcl 4 Mg/2 Ml Vial Administered 11/29/22 18:54 Dose 4 mg .ROUTE .STK-MED ONE Lab/Rad Data: Laboratory Result Diagrams 11/29/22 18:15 11/29/22 18:15 Laboratory Results 11/29/22 11/29/22 11/29/22 Range/Units 18:15 18:15 18:15 WBC 11.1 H (4.0-10.5) x10^3/uL RBC 4.36 (4.1-5.4) x10^6/uL Hgb 13.7 (12.0-16.0) g/dL Hct 40.9 (35-47) % MCV 93.8 (78-100) fL MCH 31.4 (26-32) pg MCHC 33.5 (32-36) g/dL RDW 13.0 (11.5-14.0) % Plt Count 255 (150-450) x10^3/uL MPV 9.7 (7.5-11.0) fL Gran % 54.9 (36.0-66.0) % Immature Gran % (Auto) 1.2 H (0.00-0.4) % Nucleat RBC Rel Count 0.0 (0.00-0.1) % Eos # (Auto) 0.27 (0-0.5) x10^3/uL Immature Gran # (Auto) 0.13 H (0.00-0.03) x10^3u/L Absolute Lymphs (auto) 3.30 (1.0-4.6) x10^3/uL Absolute Monos (auto) 1.17 (0.0-1.3) x10^3/uL Absolute Nucleated RBC 0.00 (0.00-0.01) x10^3u/L Lymphocytes % 29.7 (24.0-44.0) % Monocytes % 10.5 (0.0-12.0) % Eosinophils % 2.4 (0.00-5.0) % Basophils % 1.3 (0.0-0.4) % Absolute Granulocytes 6.09 (1.4-6.9) x10^3/uL Basophils # 0.14 (0-0.4) x10^3/uL Sodium 136 L (137-145) mmol/L Potassium 4.7 (3.5-5.1) mmol/L Chloride 107 (98-107) mmol/L Carbon Dioxide 25 (22-30) mmol/L Anion Gap 9.0 (5-15) MEQ/L BUN 16 (7-17) mg/dL Creatinine 0.57 (0.52-1.04) mg/dL Estimated GFR > 60.0 ML/MIN Glucose 235 H (74-106) mg/dL Calcium 8.8 (8.4-10.2) mg/dL Total Bilirubin 0.80 (0.2-1.3) mg/dL AST 37 H (14-36) U/L ALT 22 (0-35) U/L Alkaline Phosphatase 90 (38-126) U/L Troponin I < 0.012 (0.000-0.034) ng/mL Serum Total Protein 7.3 (6.3-8.2) g/dL Albumin 4.0 (3.5-5.0) g/dL Lipase 184 (23-300) U/L - Progress Progress: improved, re-examined Progress Note: 11/29/22 20:55 62 years old is evaluated for left upper abdominal pain for 2 hours with nausea without vomiting or diarrhea. No chest pain palpitations or difficulty breathing. Patient has tenderness on the left side on exam. On reevaluation her pain is completely resolved. Has a white count of 11, fairly unremarkable chemistries. CT abdomen pelvis negative for colitis, obstruction, perforation, obstructive stones, pancreatitis. Do not know the exact cause of her symptoms but have ruled out all the major emergencies. Also has negative troponins as well. Recommended taking Tylenol and outpatient follow-up. Discussed signs symptoms of worsening needing return to ER which she seems understanding. Stable for discharge. Counseled pt/family regarding: lab results, diagnosis, need for follow-up, rad results - Departure Departure Disposition: Home Clinical Impression: Upper abdominal pain Condition: Stable Critical Care Time: No Referrals: BRUCE ALBARRAN [Primary Care Provider] - Follow Up with PCP/3 days Instructions: Severe Abdominal Pain Additional Instructions: Take Tylenol as needed for pain. Follow-up with primary care for reevaluation. Return to ER for worsening pain, nausea/vomiting etc.
[2022-11-29 18:31] LABS: Absolute Neutrophil Ct (ANC) 6.09 x10^3/uL (1.4-6.9); Basophil (Absolute #) 0.14 x10^3/uL (0-0.4); Eosinophil % 2.4 % (0.00-5.0); Eosinophil (Absolute #) 0.27 x10^3/uL (0-0.5); Hematocrit 40.9 % (35-47); Hemoglobin 13.7 g/dL (12.0-16.0); Lymphocytes % 29.7 % (24.0-44.0); Mean Cell Volume 93.8 fL (78-100); Mean Corpuscular Hemoglobin 31.4 pg (26-32); Mean Corpuscular Hgb Concent. 33.5 g/dL (32-36); Mean Platelet Volume 9.7 fL (7.5-11.0); Monocyte (Absolute #) 1.17 x10^3/uL (0.0-1.3); Monocytes % 10.5 % (0.0-12.0); Neutrophil % 54.9 % (36.0-66.0); Platelet Count 255 x10^3/uL (150-450); Red Blood Count 4.36 x10^6/uL (4.1-5.4); White Blood Count 11.1 x10^3/uL (4.0-10.5)
[2022-11-29 18:38] LABS: ALKALINE PHOSPHATASE 90 U/L (38-126); BLOOD UREA NITROGEN 16 mg/dL (7-17); CHLORIDE 107 mmol/L (98-107); Calcium 8.8 mg/dL (8.4-10.2); Carbon Dioxide 25 mmol/L (22-30); Creatinine 1 0.57 mg/dL (0.52-1.04); EST GLOMERULAR FILTRATION RATE > 60.0 ML/MIN; Glucose 235 mg/dL (74-106); LIPASE 184 U/L (23-300); Potassium 4.7 mmol/L (3.5-5.1); SGOT/AST 37 U/L (14-36); SGPT/ALT 22 U/L (0-35); SODIUM 136 mmol/L (137-145); Total Protein 7.3 g/dL (6.3-8.2)
[2022-11-29] MEDS ORDERED: MORPHINE SULFATE 4 MG INJ ONE (18:53)
[2022-11-29] MEDS ORDERED: Zofran 4 MG/2 ML VIAL ONE (18:53)
[2022-11-29 20:07] LABS: INR 2.66 (0.8-3.0); PROTIME 25.8 SECONDS (9.4-12.5)
[2022-11-29 20:15] LABS: Appearance Clear (Clear); Bacteria None Seen /HPF (None Seen); Bilirubin Negative (Negative); Blood Negative (Negative); Epithelial Cells None Seen /HPF (None Seen); Glucose >=1000 mg/dL (Negative); Hyaline Casts 0-2 /LPF (0-2); Ketones Trace (Negative); Leukocyte Esterase Negative (Negative); Nitrite Negative (Negative); Ph 5.5 (4.6-8.0); Protein,Urine Dip Negative (Negative); RBC 0-2 /HPF (0-5); Specific Gravity 1.025 (1.005-1.030); WBC 0-2 /HPF (0-5)
[2022-11-29 20:20] LABS: ADD URINE CULTURE? NO (NO)
[2022-11-29 20:39] VITALS: BP 95/53; PULSE 60; O2SAT 96
--- NOTE | 2022-11-30 08:36 | XRAY ---
Indication: Left upper quadrant pain. Multiple contiguous axial images obtained through the abdomen and pelvis without contrast. Comparison: October 31, 2020 Lung bases remain clear again with incidental small right lower lobe calcific granuloma. Heart not enlarged again with pacer leads. Stomach is distended with food/fluid. Noncontrasted bowel loops appear nonobstructed. Again appendectomy, cholecystectomy, and bilateral tubal ligation clips. No free fluid/air. Again nonobstructing punctate calculi bilaterally. Remaining liver, pancreas, spleen, adrenal glands, kidneys, ureters, bladder, and uterus are unremarkable for noncontrast exam. There remains moderate aortoiliac calcifications without AAA. Osseous structures intact again with mild degenerative changes throughout the spine. Impression: 1. Again nonobstructing bilateral renal micro-calculi, arteriosclerotic disease, degenerative spondylosis, and old granulomatous disease. 2. Remaining CT abdomen/pelvis without contrast exam is negative.
== END 2022-11-29 20:44 | disposition home or self-care (01) ==
LOC: ED 16:39
DX: R10.12 Left upper quadrant pain (principal); R11.0 Nausea; I10 Essential (primary) hypertension; E78.5 Hyperlipidemia, unspecified; E11.9 Type 2 diabetes mellitus without complications; Z79.84 Long term (current) use of oral hypoglycemic drugs; Z79.891 Long term (current) use of opiate analgesic; Z79.01 Long term (current) use of anticoagulants; Z79.899 Other long term (current) drug therapy
CPT/HCPCS: 36000; 36415; 74176; 80053; 81001; 83690; 84484; 85025; 85610; 96360; 96374; 96375; 99284; J2270; J2405